=== PATIENT | male | born 1960 | race Caucasian/White ===

== ENCOUNTER → 2016-05-22 | Outpatient (CLI) | payer OTHER ==
[2016-05-22 10:23] LABS: Basophils % (A) 1 %; CH 31.9; CHCM 34.2; Eosinophils # (A) 0.2 k/uL (0-0.7); Eosinophils % (A) 3 %; HCT 44.2 % (39.0-53.0); HDW 2.37; HGB 14.6 gm/dL (13.0-17.5); Luc # (Auto) 0.19; Luc % (Auto) 3; Lymphocytes # (A) 1.9 k/uL (1.0-4.8); Lymphocytes % (A) 26 %; MCH 30.9 pg (25.0-35.0); MCHC 33.1 g/dL (31.0-37.0); MCV 93.4 fL (80.0-100.0); Mean Platelet Volume 7.3; Monocytes # (A) 0.4 k/uL (0-1.0); Monocytes % (A) 5 %; Neutrophils # (A) 4.4 k/uL (1.3-7.7); Neutrophils % (A) 63 %; RBC 4.74 m/uL (4.30-5.90); RDW 12.5 % (11.5-15.5); WBC 7.1 k/uL (3.8-10.6); WBC (Perox) 7.29
[2016-05-22 11:40] LABS: Hemoglobin A1C 5.1 % (4.2-6.1)
[2016-05-22 11:51] LABS: Erythrocyte Sedimentation Rate 4 mm/hr (0-15)
[2016-05-22 13:15] LABS: ALT 43 U/L (21-72); AST 29 U/L (17-59); Alkaline Phosphatase 74 U/L (38-126); Anion Gap 10 mmol/L; Blood Urea Nitrogen 17 mg/dL (9-20); C Reactive Protein <5.0 mg/L (<10.0); Calcium 9.9 mg/dL (8.4-10.2); Carbon Dioxide 25 mmol/L (22-30); Chloride 104 mmol/L (98-107); Cholesterol 156 mg/dL (<200); Creatine Kinase 76 U/L (55-170); Glucose 93 mg/dL (74-99); HDL Cholesterol 69 mg/dL (40-60); Non-African American GFR(MDRD) >60 (>60 ml/min/1.73 sqM); Potassium 4.4 mmol/L (3.5-5.1); Sodium 139 mmol/L (137-145); Total Bilirubin 0.7 mg/dL (0.2-1.3); Total Protein 7.6 g/dL (6.3-8.2); Triglycerides 142 mg/dL (<150)
[2016-05-22 13:46] LABS: Prostate Specific Antigen 0.57 ng/mL (0.00-4.00)
== END | disposition home or self-care (01) ==
LOC: LABWHC1 08:58
PROVIDERS: ATTEND Internal Medicine
DX: Z00.00 Encounter for general adult medical examination without abnormal findings (principal); N40.0 Benign prostatic hyperplasia without lower urinary tract symptoms; E78.5 Hyperlipidemia, unspecified; I10 Essential (primary) hypertension; E55.9 Vitamin D deficiency, unspecified; R73.9 Hyperglycemia, unspecified
CPT/HCPCS: 36415; 80053; 80061; 82306; 82550; 83036; 84153; 84439; 84443; 85025; 85652; 86140

== ENCOUNTER → 2017-01-13 | Outpatient (CLI) | payer OTHER ==
[2017-01-13 10:14] LABS: Anion Gap 11 mmol/L; Blood Urea Nitrogen 17 mg/dL (9-20); Calcium 9.7 mg/dL (8.4-10.2); Carbon Dioxide 25 mmol/L (22-30); Chloride 102 mmol/L (98-107); Glucose 97 mg/dL (74-99); Non-African American GFR(MDRD) >60 (>60 ml/min/1.73 sqM); Potassium 4.4 mmol/L (3.5-5.1); Sodium 138 mmol/L (137-145)
== END | disposition home or self-care (01) ==
LOC: LABWHC1 09:19
PROVIDERS: ATTEND Internal Medicine
DX: E87.8 Other disorders of electrolyte and fluid balance, not elsewhere classified (principal)
CPT/HCPCS: 36415; 80048

== ENCOUNTER → 2017-07-17 | Outpatient (CLI) | payer OTHER ==
[2017-07-17 08:24] LABS: Basophils % (A) 0 %; Eosinophils # (A) 0.3 k/uL (0-0.7); Eosinophils % (A) 4 %; HCT 41.6 % (39.0-53.0); HGB 14.4 gm/dL (13.0-17.5); Lymphocytes # (A) 1.8 k/uL (1.0-4.8); Lymphocytes % (A) 26 %; MCH 31.6 pg (25.0-35.0); MCHC 34.5 g/dL (31.0-37.0); MCV 91.5 fL (80.0-100.0); Mean Platelet Volume 7.2; Monocytes # (A) 0.4 k/uL (0-1.0); Monocytes % (A) 6 %; Neutrophils # (A) 4.3 k/uL (1.3-7.7); Neutrophils % (A) 61 %; Platelet Count 170 k/uL (150-450); RBC 4.55 m/uL (4.30-5.90); RDW 12.9 % (11.5-15.5)
[2017-07-17 09:27] LABS: Erythrocyte Sedimentation Rate 4 mm/hr (0-15)
[2017-07-17 10:28] LABS: ALT 42 U/L (21-72); AST 30 U/L (17-59); Albumin 4.3 g/dL (3.5-5.0); Alkaline Phosphatase 70 U/L (38-126); Anion Gap 13 mmol/L; Blood Urea Nitrogen 24 mg/dL (9-20); C Reactive Protein <5.0 mg/L (<10.0); Calcium 9.4 mg/dL (8.4-10.2); Carbon Dioxide 24 mmol/L (22-30); Chloride 104 mmol/L (98-107); Cholesterol 159 mg/dL (<200); Creatine Kinase 85 U/L (55-170); Glucose 93 mg/dL (74-99); HDL Cholesterol 63 mg/dL (40-60); LDL Cholesterol,Calculated 62 mg/dL (0-99); Potassium 4.6 mmol/L (3.5-5.1); Sodium 141 mmol/L (137-145); Total Bilirubin 0.5 mg/dL (0.2-1.3); Triglycerides 171 mg/dL (<150)
[2017-07-17 10:53] LABS: Prostate Specific Antigen 0.59 ng/mL (0.00-4.00)
== END | disposition home or self-care (01) ==
LOC: LABWHC1 07:27
PROVIDERS: ATTEND Internal Medicine
DX: E78.5 Hyperlipidemia, unspecified (principal); E55.9 Vitamin D deficiency, unspecified; I10 Essential (primary) hypertension; N40.0 Benign prostatic hyperplasia without lower urinary tract symptoms
CPT/HCPCS: 36415; 80053; 80061; 82306; 82550; 84153; 85025; 85652; 86140

== ENCOUNTER → 2018-09-03 | Outpatient (CLI) | payer OTHER ==
[2018-09-03 08:57] LABS: Basophils % (A) 0 %; Eosinophils # (A) 0.2 k/uL (0-0.7); Eosinophils % (A) 3 %; HCT 41.4 % (39.0-53.0); HGB 13.8 gm/dL (13.0-17.5); Lymphocytes # (A) 1.6 k/uL (1.0-4.8); Lymphocytes % (A) 23 %; MCHC 33.4 g/dL (31.0-37.0); MCV 92.6 fL (80.0-100.0); Mean Platelet Volume 6.9; Monocytes # (A) 0.4 k/uL (0-1.0); Monocytes % (A) 5 %; Neutrophils # (A) 4.6 k/uL (1.3-7.7); Neutrophils % (A) 66 %; Platelet Count 196 k/uL (150-450); RBC 4.47 m/uL (4.30-5.90); RDW 12.6 % (11.5-15.5)
[2018-09-03 10:32] LABS: Erythrocyte Sedimentation Rate 8 mm/hr (0-15)
[2018-09-03 17:36] LABS: ALT 29 U/L (10-49); AST 21 U/L (14-35); African American GFR (CKD) 110.3 (60.0-200.0); Alkaline Phosphatase 69 U/L (41-126); BUN/Creat Ratio 18.89 Ratio (12.00-20.00); C Reactive Protein <0.4 mg/dL (0.0-0.8); Calcium 9.3 mg/dL (8.7-10.3); Carbon Dioxide 24.2 mmol/L (21.6-31.8); Chloride 104 mmol/L (96-109); Cholesterol 153 mg/dL (0-200); Creatine Kinase 81 U/L (35-257); Globulin 2.2 g/dL (1.6-3.3); Glucose 89 mg/dL (70-110); Potassium 4.4 mmol/L (3.5-5.5); Sodium 139 mmol/L (135-145); Total Bilirubin 0.5 mg/dL (0.3-1.2); Total Protein 6.6 g/dL (6.2-8.2)
== END | disposition home or self-care (01) ==
LOC: LABWHC1 07:54
PROVIDERS: ATTEND Internal Medicine
DX: E78.5 Hyperlipidemia, unspecified (principal); I10 Essential (primary) hypertension
CPT/HCPCS: 36415; 80053; 80061; 82550; 84153; 85025; 85652; 86140

== ENCOUNTER → 2020-01-13 | Outpatient (CLI) | payer OTHER ==
[2020-01-13 10:31] LABS: Basophils % (A) 0 %; Eosinophils # (A) 0.3 k/uL (0-0.7); Eosinophils % (A) 4 %; HGB 14.7 gm/dL (13.0-17.5); Lymphocytes # (A) 1.8 k/uL (1.0-4.8); Lymphocytes % (A) 27 %; MCH 32.1 pg (25.0-35.0); MCHC 34.2 g/dL (31.0-37.0); Mean Platelet Volume 7.5; Monocytes # (A) 0.3 k/uL (0-1.0); Monocytes % (A) 5 %; Neutrophils % (A) 61 %; Platelet Count 183 k/uL (150-450); RBC 4.58 m/uL (4.30-5.90); WBC 6.5 k/uL (3.8-10.6)
[2020-01-13 15:10] LABS: Erythrocyte Sedimentation Rate 3 mm/hr (0-15)
[2020-01-13 16:29] LABS: ALT 29 U/L (10-49); AST 23 U/L (14-35); African American GFR (CKD) 85.9 (60.0-200.0); Albumin/Globulin Ratio 1.88 (1.60-3.17); Alkaline Phosphatase 63 U/L (41-126); BUN/Creat Ratio 15.45 Ratio (12.00-20.00); C Reactive Protein <0.4 mg/dL (0.0-0.8); Calcium 9.6 mg/dL (8.7-10.3); Carbon Dioxide 27.1 mmol/L (21.6-31.8); Chloride 104 mmol/L (96-109); Chol/HDL Ratio 3.17; Cholesterol 165 mg/dL (0-200); Creatine Kinase 58 U/L (35-257); Globulin 2.4 g/dL (1.6-3.3); Glucose 101 mg/dL (70-110); LDL Cholesterol,Calculated 83.2 mg/dL (0.0-131.0); Non-African American GFR(CKD) 74.1 (60.0-200.0); Potassium 4.7 mmol/L (3.5-5.5); Sodium 140 mmol/L (135-145); Total Bilirubin 0.7 mg/dL (0.3-1.2); Total Protein 6.9 g/dL (6.2-8.2)
== END | disposition home or self-care (01) ==
LOC: LABWHC1 09:02
PROVIDERS: ATTEND Internal Medicine
DX: Z00.00 Encounter for general adult medical examination without abnormal findings (principal); D64.9 Anemia, unspecified; I10 Essential (primary) hypertension; E87.8 Other disorders of electrolyte and fluid balance, not elsewhere classified; E78.5 Hyperlipidemia, unspecified
CPT/HCPCS: 36415; 80053; 80061; 82550; 85025; 85652; 86140

== ENCOUNTER → 2021-01-19 | Outpatient (CLI) | payer OTHER ==
[2021-01-19 15:36] LABS: Basophils # (A) 0.05 X 10*3/uL (0.00-0.10); Basophils % (A) 0.8 %; Eosinophils # (A) 0.43 X 10*3/uL (0.04-0.35); HCT 41.5 % (39.6-50.0); HGB 13.8 g/dL (13.0-17.0); Lymphocytes # (A) 2.03 X 10*3/uL (0.90-5.00); Lymphocytes % (A) 32.9 %; MCH 31.1 pg (27.0-32.0); MCHC 33.3 g/dL (32.0-37.0); MCV 93.5 fL (80.0-97.0); Mean Platelet Volume 10.8 fL (9.5-12.2); Monocytes # (A) 0.62 X 10*3/uL (0.20-1.00); Neutrophils # (A) 3.02 X 10*3/uL (1.80-7.70); Platelet Count 190 X 10*3/uL (140-440); RBC 4.44 X 10*6/uL (4.40-5.60); RDW 12.2 % (11.5-14.5); WBC 6.17 X 10*3/uL (4.50-10.00)
[2021-01-19 15:59] LABS: ALT 27 U/L (10-49); AST 22 U/L (14-35); African American GFR (CKD) 114.7 (60.0-200.0); Albumin 4.5 g/dL (3.8-4.9); Albumin/Globulin Ratio 1.76 (1.60-3.17); Alkaline Phosphatase 62 U/L (41-126); BUN/Creat Ratio 15.32 Ratio (12.00-20.00); Blood Urea Nitrogen 12.1 mg/dL (9.0-27.0); Calcium 9.7 mg/dL (8.7-10.3); Carbon Dioxide 24.9 mmol/L (20.0-27.5); Chloride 101 mmol/L (96-109); Chol/HDL Ratio 2.48 Ratio; Globulin 2.6 g/dL (1.6-3.3); Glucose 90 mg/dL (70-110); Potassium 4.7 mmol/L (3.5-5.5); Sodium 138 mmol/L (135-145); Total Protein 7.1 g/dL (6.2-8.2)
[2021-01-19 18:04] LABS: Erythrocyte Sedimentation Rate 7 mm/Hr (0-20)
== END | disposition home or self-care (01) ==
LOC: LABWHC1 09:50
PROVIDERS: ATTEND Internal Medicine
DX: Z00.00 Encounter for general adult medical examination without abnormal findings (principal); D64.9 Anemia, unspecified; E87.8 Other disorders of electrolyte and fluid balance, not elsewhere classified; E78.5 Hyperlipidemia, unspecified; N40.0 Benign prostatic hyperplasia without lower urinary tract symptoms
CPT/HCPCS: 36415; 80053; 80061; 84153; 84443; 85025; 85652

== ENCOUNTER → 2022-01-17 | Outpatient (CLI) | payer OTHER ==
[2022-01-17 10:28] LABS: Basophils # (A) 0.04 X 10*3/uL (0.00-0.10); Basophils % (A) 0.6 %; Eosinophils # (A) 0.21 X 10*3/uL (0.04-0.35); HCT 42.4 % (39.6-50.0); HGB 14.3 g/dL (13.0-17.0); Immature Grans, Automated 0.4 %; Lymphocytes # (A) 1.85 X 10*3/uL (0.90-5.00); Lymphocytes % (A) 26.4 %; MCH 31.2 pg (27.0-32.0); MCHC 33.7 g/dL (32.0-37.0); MCV 92.4 fL (80.0-97.0); Mean Platelet Volume 10.7 fL (9.5-12.2); Monocytes # (A) 0.64 X 10*3/uL (0.20-1.00); Monocytes % (A) 9.1 %; NRBC Per 100 WBC 0 /100 WBCS (0.0-0.0); Neutrophils # (A) 4.24 X 10*3/uL (1.80-7.70); Neutrophils % (A) 60.5 %; Platelet Count 196 X 10*3/uL (140-440); RBC 4.59 X 10*6/uL (4.40-5.60); RDW 12.6 % (11.5-14.5); WBC 7.01 X 10*3/uL (4.50-10.00)
[2022-01-17 10:51] LABS: Chol/HDL Ratio 2.69 Ratio; LDL Cholesterol,Calculated 63.4 mg/dL (0.0-131.0)
[2022-01-17 11:03] LABS: ALT 29 U/L (10-49); AST 18 U/L (14-35); Albumin 4.8 g/dL (3.8-4.9); Albumin/Globulin Ratio 1.85 (1.60-3.17); Alkaline Phosphatase 77 U/L (41-126); BUN/Creat Ratio 17.67 Ratio (12.00-20.00); Blood Urea Nitrogen 15.9 mg/dL (9.0-27.0); C Reactive Protein <0.30 mg/dL (0.00-0.80); Calcium 9.9 mg/dL (8.7-10.3); Carbon Dioxide 25.7 mmol/L (20.0-27.5); Chloride 100 mmol/L (96-109); Creatine Kinase 70 U/L (35-257); Globulin 2.6 g/dL (1.6-3.3); Glucose 99 mg/dL (70-110); Magnesium 2.4 mg/dL (1.5-2.4); Non-African American GFR(CKD) 93.2 (60.0-200.0); Phosphorus 3.6 mg/dL (2.4-5.1); Potassium 4.3 mmol/L (3.5-5.5); Sodium 137 mmol/L (135-145); Total Protein 7.4 g/dL (6.2-8.2)
[2022-01-17 11:49] LABS: Erythrocyte Sedimentation Rate 3 mm/Hr (0-20)
== END | disposition home or self-care (01) ==
LOC: LABWHC1 08:11
PROVIDERS: ATTEND Internal Medicine
DX: Z00.00 Encounter for general adult medical examination without abnormal findings (principal); D64.9 Anemia, unspecified; N40.0 Benign prostatic hyperplasia without lower urinary tract symptoms; I10 Essential (primary) hypertension; E78.5 Hyperlipidemia, unspecified; E03.9 Hypothyroidism, unspecified
CPT/HCPCS: 36415; 80053; 80061; 82550; 83735; 84100; 84153; 84443; 85025; 85652; 86140

== ENCOUNTER → 2022-12-13 | Outpatient (CLI) | payer OTHER ==
--- NOTE | 2022-12-13 10:51 | XR ---
EXAMINATION TYPE: XR finger RT DATE OF EXAM: 12/13/2022 CLINICAL HISTORY: pain TECHNIQUE: 3 views of the right third digit are submitted. COMPARISON: None FINDINGS: No displaced fracture is seen with certainty. Joint spaces are well-preserved. Correlate for soft tissue injury. IMPRESSION: No acute displaced fracture or dislocation.
== END | disposition home or self-care (01) ==
LOC: RADXRMAIN 10:13
PROVIDERS: ATTEND Internal Medicine
DX: S62.602A Fracture of unspecified phalanx of right middle finger, initial encounter for closed fracture (principal)

== ENCOUNTER → 2023-01-02 | Outpatient (CLI) | payer OTHER ==
[2023-01-02 15:25] LABS: Basophils # (A) 0.04 X 10*3/uL (0.00-0.10); Basophils % (A) 0.6 %; Eosinophils # (A) 0.17 X 10*3/uL (0.04-0.35); Eosinophils % (A) 2.6 %; HCT 42.6 % (39.6-50.0); HGB 14.3 g/dL (13.0-17.0); Lymphocytes # (A) 1.97 X 10*3/uL (0.90-5.00); Lymphocytes % (A) 29.7 %; MCH 31.2 pg (27.0-32.0); MCHC 33.6 g/dL (32.0-37.0); MCV 92.8 FL (80.0-97.0); Monocytes # (A) 0.59 X 10*3/uL (0.20-1.00); Monocytes % (A) 8.9 %; NRBC Per 100 WBC 0 X 10*3/uL (0.00-0.01); Neutrophils # (A) 3.83 X 10*3/uL (1.80-7.70); Neutrophils % (A) 57.6 %; Platelet Count 208 X 10*3/uL (140-440); RBC 4.59 X 10*6/uL (4.40-5.60); RDW 12.4 % (11.5-14.5); WBC 6.64 X 10*3/uL (4.50-10.00)
[2023-01-02 15:53] LABS: ALT 30 U/L (10-49); AST 23 U/L (14-35); Albumin 4.7 g/dL (3.8-4.9); Albumin/Globulin Ratio 1.81 Ratio (1.60-3.17); Alkaline Phosphatase 73 U/L (41-126); BUN/Creat Ratio 16.11 Ratio (12.00-20.00); Blood Urea Nitrogen 14.5 mg/dL (9.0-27.0); Calcium 10.4 mg/dL (8.7-10.3); Carbon Dioxide 25.8 mmol/L (21.6-31.8); Chloride 101 mmol/L (96-109); Chol/HDL Ratio 2.61 Ratio; Creatine Kinase 85 U/L (35-257); Globulin 2.6 g/dL (1.6-3.3); Glucose 99 mg/dL (70-110); LDL Cholesterol,Calculated 83.5 mg/dL (0.0-131.0); Magnesium 2.2 mg/dL (1.5-2.4); Phosphorus 3.5 mg/dL (2.4-5.1); Sodium 138 mmol/L (135-145); Total Bilirubin 0.4 mg/dL (0.3-1.2); Total Protein 7.3 g/dL (6.2-8.2); Uric Acid 7.1 mg/dL (3.7-8.7); VLDL Calculation 19.38 mg/dL (5.00-40.00)
[2023-01-02 15:54] LABS: C Reactive Protein <0.30 mg/dL (0.00-0.80); Prostate Specific Antigen 0.67 ng/mL (0.000-4.500)
[2023-01-02 16:53] LABS: Erythrocyte Sedimentation Rate 10 mm/Hr (0-20)
== END | disposition home or self-care (01) ==
LOC: LABWHC1 09:01
PROVIDERS: ATTEND Internal Medicine
DX: Z00.00 Encounter for general adult medical examination without abnormal findings (principal); I10 Essential (primary) hypertension; D64.9 Anemia, unspecified; N40.0 Benign prostatic hyperplasia without lower urinary tract symptoms; E87.8 Other disorders of electrolyte and fluid balance, not elsewhere classified; E55.9 Vitamin D deficiency, unspecified; M10.9 Gout, unspecified; E78.5 Hyperlipidemia, unspecified
CPT/HCPCS: 36415; 80053; 80061; 82306; 82550; 83735; 84100; 84153; 84443; 84550; 85025; 85652; 86140

== ENCOUNTER → 2023-07-02 | Outpatient (CLI) | payer OTHER ==
[2023-07-02 14:47] LABS: Basophils # (A) 0.03 X 10*3/uL (0.00-0.10); Basophils % (A) 0.4 %; Eosinophils # (A) 0.25 X 10*3/uL (0.04-0.35); Eosinophils % (A) 3.7 %; HCT 41.8 % (39.6-50.0); HGB 14.1 g/dL (13.0-17.0); Lymphocytes # (A) 1.78 X 10*3/uL (0.90-5.00); Lymphocytes % (A) 26.4 %; MCH 31.2 pg (27.0-32.0); MCHC 33.7 g/dL (32.0-37.0); MCV 92.5 FL (80.0-97.0); Mean Platelet Volume 12.2 FL (9.5-12.2); Monocytes # (A) 0.62 X 10*3/uL (0.20-1.00); Monocytes % (A) 9.2 %; NRBC Per 100 WBC 0 X 10*3/uL (0.00-0.01); Neutrophils # (A) 4.02 X 10*3/uL (1.80-7.70); Neutrophils % (A) 59.9 %; Platelet Count 217 X 10*3/uL (140-440); RBC 4.52 X 10*6/uL (4.40-5.60); RDW 12.7 % (11.5-14.5); WBC 6.73 X 10*3/uL (4.50-10.00)
[2023-07-02 15:08] LABS: ALT 30 U/L (10-49); AST 21 U/L (14-35); Albumin 4.6 g/dL (3.8-4.9); Albumin/Globulin Ratio 1.84 Ratio (1.60-3.17); Alkaline Phosphatase 80 U/L (41-126); BUN/Creat Ratio 16.22 Ratio (12.00-20.00); Blood Urea Nitrogen 14.6 mg/dL (9.0-27.0); C Reactive Protein <0.30 mg/dL (0.00-0.80); Calcium 9.7 mg/dL (8.7-10.3); Chloride 103 mmol/L (96-109); Chol/HDL Ratio 2.59 Ratio; Creatine Kinase 128 U/L (35-257); Globulin 2.5 g/dL (1.6-3.3); Glucose 95 mg/dL (70-110); LDL Cholesterol,Calculated 70.7 mg/dL (0.0-131.0); Magnesium 2.1 mg/dL (1.5-2.4); Potassium 4.6 mmol/L (3.5-5.5); Sodium 139 mmol/L (135-145); Total Bilirubin 0.3 mg/dL (0.3-1.2); Total Protein 7.1 g/dL (6.2-8.2); Uric Acid 6.9 mg/dL (3.7-8.7)
[2023-07-02 16:32] LABS: Erythrocyte Sedimentation Rate 3 mm/Hr (0-20)
== END | disposition home or self-care (01) ==
LOC: LABWHC1 08:08
PROVIDERS: ATTEND Internal Medicine
DX: Z00.00 Encounter for general adult medical examination without abnormal findings (principal); I10 Essential (primary) hypertension; M10.9 Gout, unspecified; E78.5 Hyperlipidemia, unspecified
CPT/HCPCS: 36415; 80053; 80061; 82306; 82550; 83735; 84550; 85025; 85652; 86140

== ENCOUNTER → 2024-05-01 | Outpatient (CLI) | payer OTHER ==
--- NOTE | 2024-05-01 13:37 | XR ---
EXAMINATION TYPE: XR chest 2V DATE OF EXAM: 05/01/2024 1:15 PM COMPARISON: Chest radiographs from 05/24/2014. CLINICAL INDICATION: Male, 64 years old with history of R05.9 Z11.2 Z13.9 Z11.52 J12.9 J06.9; [facility] TECHNIQUE: XR chest 2V Frontal and lateral views of the chest. FINDINGS: Lungs/Pleura: Bibasilar airspace opacities identified. There is no evidence of pleural effusion, foca l consolidation, or pneumothorax. Pulmonary vascularity: Unremarkable. Heart/mediastinum: Cardiomediastinal silhouette is unremarkable. Musculoskeletal: No acute osseous pathology. IMPRESSION: Bibasilar airspace opacities correlate for developing pneumonia versus atelectasis.[facility], , 05/01/2024 1:34 PM
[2024-05-01 14:18] LABS: Influenza A Not Detected (Not Detectd); Influenza B Not Detected (Not Detectd); RSV Not Detected (Not Detectd)
[2024-05-01 18:31] LABS: Basophils # (A) 0.03 X 10*3/uL (0.00-0.10); Basophils % (A) 0.2 %; Eosinophils # (A) 0.05 X 10*3/uL (0.04-0.35); Eosinophils % (A) 0.4 %; HCT 38.9 % (39.6-50.0); HGB 12.8 g/dL (13.0-17.0); Lymphocytes # (A) 1.67 X 10*3/uL (0.90-5.00); Lymphocytes % (A) 12.3 %; MCH 29.9 pg (27.0-32.0); MCHC 32.9 g/dL (32.0-37.0); MCV 90.9 FL (80.0-97.0); Mean Platelet Volume 11.9 FL (9.5-12.2); Monocytes # (A) 1.05 X 10*3/uL (0.20-1.00); Monocytes % (A) 7.7 %; NRBC Per 100 WBC 0 X 10*3/uL (0.00-0.01); Neutrophils % (A) 78.9 %; Platelet Count 291 X 10*3/uL (140-440); RBC 4.28 X 10*6/uL (4.40-5.60); RDW 12.6 % (11.5-14.5); WBC 13.57 X 10*3/uL (4.50-10.00)
== END | disposition home or self-care (01) ==
LOC: LABWHC1 12:51
PROVIDERS: ATTEND Internal Medicine
DX: Z11.2 Encounter for screening for other bacterial diseases (principal); Z13.9 Encounter for screening, unspecified; Z11.52 Encounter for screening for COVID-19; J12.9 Viral pneumonia, unspecified; J06.9 Acute upper respiratory infection, unspecified; R05.9 Cough, unspecified
CPT/HCPCS: 36415; 71046; 85025; 87636

== ENCOUNTER → 2024-06-09 | Outpatient (CLI) | payer OTHER ==
--- NOTE | 2024-06-09 10:03 | XR ---
EXAMINATION TYPE: XR chest 2V DATE OF EXAM: 06/09/2024 8:48 AM COMPARISON: Chest radiographs from 05/01/2024 CLINICAL INDICATION: Male, 64 years old with history of J12.9 PNEUMONIA; [facility] TECHNIQUE: XR chest 2V Frontal and lateral views of the chest. FINDINGS: Lungs/Pleura: There is no evidence of pleural effusion, focal consolidation, or pneumothorax. Pulmonary vascularity: Unremarkable. Heart/mediastinum: Cardiomediastinal silhouette is unremarkable. Musculoskeletal: No acute osseous pathology. IMPRESSION: Improvement in aeration of the lung bases. No acute cardiopulmonary disease/process. [facility], , 06/09/2024 10:00 AM
[2024-06-09 15:38] LABS: Basophils # (A) 0.04 X 10*3/uL (0.00-0.10); Basophils % (A) 0.6 %; Eosinophils # (A) 0.34 X 10*3/uL (0.04-0.35); Eosinophils % (A) 5.5 %; HCT 40.8 % (39.6-50.0); HGB 13.2 g/dL (13.0-17.0); Lymphocytes # (A) 1.93 X 10*3/uL (0.90-5.00); Lymphocytes % (A) 31.2 %; MCH 29.6 pg (27.0-32.0); MCHC 32.4 g/dL (32.0-37.0); MCV 91.5 FL (80.0-97.0); Mean Platelet Volume 12.1 FL (9.5-12.2); Monocytes # (A) 0.57 X 10*3/uL (0.20-1.00); Monocytes % (A) 9.2 %; NRBC Per 100 WBC 0 X 10*3/uL (0.00-0.01); Neutrophils # (A) 3.28 X 10*3/uL (1.80-7.70); Neutrophils % (A) 53.2 %; Platelet Count 188 X 10*3/uL (140-440); RBC 4.46 X 10*6/uL (4.40-5.60); RDW 14.4 % (11.5-14.5); WBC 6.18 X 10*3/uL (4.50-10.00)
[2024-06-09 15:56] LABS: BUN/Creat Ratio 15.22 Ratio (12.00-20.00); Blood Urea Nitrogen 13.7 mg/dL (9.0-27.0); Calcium 9.6 mg/dL (8.7-10.3); Carbon Dioxide 26.4 mmol/L (21.6-31.8); Chloride 102 mmol/L (96-109); Glucose 102 mg/dL (70-110); Potassium 4.9 mmol/L (3.5-5.5); Sodium 138 mmol/L (135-145)
== END | disposition home or self-care (01) ==
LOC: LABWHC1 07:52
PROVIDERS: ATTEND Internal Medicine
DX: J12.9 Viral pneumonia, unspecified (principal); J18.9 Pneumonia, unspecified organism; J98.4 Other disorders of lung
CPT/HCPCS: 36415; 71046; 80048; 85025